=== PATIENT | female | born 1985 | race Hispanic/Latino ===

== ENCOUNTER 2020-02-26 11:53 | Emergency (ER) | payer BC ==
[~2020-02-26] VITALS: Ht 157.5 cm; Wt 81.6 kg
--- NOTE | 2020-02-26 12:01 | Emergency Department Note ---
History of Present Illnes History of Present Illness Chief Complaint: Skin Rash or Abscess History of Present Illness This is a 35 year old female . Historian: Patient Arrival Mode: Car After School Driver Required: No Onset (how long ago): day(s) (4) Location: right labia Quality: painful Radiation: Reports non-radiation Severity: moderate, severe Onset quality: gradual Duration (how long): day(s) (4) Timing of current episode: constant Progression: worsening Context: Denies recent illness Relieving factors: none Exacerbating factors: none, movement Associated symptoms: Reports denies other symptoms Treatments prior to arrival: none Past Medical/Family History Physician Review I have reviewed the patient's past medical and family history. Any updates have been documented here. Past Medical History Recent Fever: No Clinical Suspicion of Infectio: No New/Unexplained Change in Ment: No Social History Smoking Cessation: Never Smoker Counseling Performed: No Alcohol Use: Social Any Illegal Drug Use: No TB Exposure/Symptoms: No Physically hurt or threatened: No Other Any Pre-Existing Lines (PICC,: No Is patient up to date on immun: No Review of Systems ROS Narrative Patient is a 35 year old female that presents with right labia abscess that started as a small bump 4 days ago, patinet states it is now hard to sit Review of Systems Constitutional: Reports no symptoms EENTM: Reports no symptoms Cardiovascular: Reports no symptoms Respiratory: Reports no symptoms Gastrointestinal: Reports no symptoms Genitourinary: Reports no symptoms Musculoskeletal: Reports no symptoms Integumentary: Reports lumps (right vaginal wall per patinet) Neurological: Reports no symptoms Psychological: Reports no symptoms Endocrine: Reports no symptoms Hematological/Lymphatic: Reports no symptoms Physical Exam Related Data Allergies: Coded Allergies: No Known Allergies (Unverified , 02/26/20) Vital signs reviewed: Yes Physical Exam CONSTITUTIONAL Constitutional: Present well-developed, Present well-nourished HENT HENT: Present normocephalic, Present atraumatic, Present oropharynx clear/mo ist, Present nose normal HENT L/R: Present left ext ear normal, Present right ext ear normal EYES Eyes: Reports PERRL, Reports conjunctivae normal NECK Neck: Present ROM normal PULMONARY Pulmonary: Present effort normal, Present breath sounds normal CARDIOVASCULAR Cardiovascular: Present regular rhythm, Present heart sounds normal, Present capillary refill normal, Present normal rate GASTROINTESTINAL Abdominal: Present soft, Present nontender, Present bowel sounds normal GENITOURINARY Genitourinary: Present exam deferred; Absent vagina normal (between labia majora and labia minora 2.5 fluctuant ab scess notedwith no redness surrounding area) SKIN Skin: Present warm, Present dry MUSCULOSKELETAL Musculoskeletal: Present ROM normal NEUROLOGICAL Neurological: Present alert, Present oriented x 3, Present no gross motor or sensory deficits PSYCHOLOGICAL Psychological: Present mood/affect normal, Present judgement normal Procedures Incision and Drain Type of anesthesia: local Risks and benefits discussed: Yes Verbal consent obtained: Yes Consent given by: patient Imaging studies available/revi: no Procedure verified: Yes Side verified: yes Site verified: yes Type: abscess Size: 2.5 Site: other (vagina) Skin preparation: Betadine Anesthesia method: local infiltration Needle aspiration: Yes Incision type: stab incision Incision depth: dermal Scalpel blade: 11 Wound management: probed and deloculated, irrigated with saline Drainage: purulent Drainage amount: moderate (2.5) Wound treatment: wound left open Packing used: 1/4 in gauze Patient tolerance: tolerated well Procedure attestation: I performed the procedure Assessment & Plan Medical Decision Making MDM I&D with packing Updated tetanus and gave first dise of ABX Assessment & Plan Final Impression: (1) Abscess of vagina Depart Disposition: HOME, SELF-CARE CONNOR RINALDI Feb 26, 2020 12:01
[2020-02-26] MEDS ORDERED: LIDOCAINE HCL 1% 2 ML AMP ONE (12:20)
[2020-02-26] MEDS ORDERED: DOXYCYCLINE HYCLATE TABLET 100 MG TAB PO ONE (12:45)
[2020-02-26] MEDS ORDERED: TRIMETHOPRIM/SULFAMETHOXAZOLE 160-800 MG TAB PO ONE (12:45)
[2020-02-26] MEDS ORDERED: TETANUS/DIPHTHERIA TOX ADULT 0.5 ML SYR IM ONE (12:45)
[2020-02-26 12:57] VITALS: BP 124/65
== END 2020-02-26 13:21 | disposition home or self-care (01) ==
LOC: ER 12:06
DX: N76.4 Abscess of vulva (principal)
CPT/HCPCS: 56405; 90471; 90714; 99283; J2001